=== PATIENT | male | born 1945 | race Caucasian/White ===

== ENCOUNTER → 2016-12-17 | Day surgery (SDC) | payer MEDICARE ==
[~2016-12-17] MED LIST: BUPIVACAINE/EPINEPHRINE 0.25% PF 30 ML VIAL ONE; BUPIVACAINE/EPINEPHRINE 0.5% PF 30 ML VIAL ONE; KETOROLAC TROMETHAMINE 30 MG/ML (IVP) VIAL IV PUSH ONE; LACTATED RINGER'S 1,000 ML BAG IV ONE; LACTATED RINGER'S 1000 ML INJ 1,000 ML ONE; LISI-363 PO; LORTA5 PO; MIDAZOLAM HCL 2 MG/2 ML VIAL ONE; OMEP20TA39 PO; ONDANSETRON HCL 4 MG/2 ML VIAL IV PUSH ONE; PROPOFOL 200 MG/20 ML AMP IV ONE; RIVA10 PO; TRIAMCINOLONE ACETONIDE 40 MG/ML VIAL ONE; Z.0.COMMODE-3:1; Z.0.CPM; Z.0.WALKERFRONT; ceFAZolin INJ 1,000 MG VIAL ONE
--- NOTE | 2016-12-19 22:25 | MP ---
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 FINDINGS Tricompartmental scar tissue. SURGEON Nicole Cedeño MD. RISK ASSESSOR LUIGI Jarvis. RISK ASSESSOR LUIGI Dey The surgical procedure was assisted by my Advanced Registered Nurse Practitioner. My AUDIOLOGY DOCTOR presence was necessary throughout this case for the manipulation and positioning of the surgical extremity. My AUDIOLOGY DOCTOR was assisting me throughout the duration of this procedure. The skill set of an Advance Registered Nurse Practitioner was medically necessary to complete this procedure. During the surgical case, the electrical electronics technician was working at the back table and the Advance Registered Nurse Practitioner was directly assisting me. PROCEDURE Left knee arthroscopy with three compartment synovectomy and resection of scar tissue. ESTIMATED BLOOD LOSS Minimal ANESTHESIA General PROCEDURE IN DETAIL The patient was brought back to the operative theater. After general anesthesia was administered, the left lower extremity was prepped and draped in usual sterile fashion. The patient received intravenous Ancef. We started with the standard inferolateral portal. We got out about 5 mL of clear yellow synovial fluid which was viscus in nature and showed no signs of infection. We then established an inferomedial portal under spinal needle visualization. We identified that there was significant scar tissue in the front of the knee. We started with resecting this. We used a combination of several different types of oscillating john and then we used underwater [employer]thro[employer] wand which helped very well. As we progressed, we noticed that there was scar tissue that was covering both the medial and the lateral femoral condyle and also within the notch. We resected all of this tissue which now gave excellent exposure to the prosthesis. There was an arc of scar tissue that was just infrapatellar which was also resected. We then got excellent visualization of the patella component and then we found out there was some scar tissue in nodule form that was of the proximal patella. We resected all of the aforementioned scar tissue out of the patellofemoral joint and then off of the medial and lateral femoral condyle. Evaluation of the prosthesis, specifically the femoral component and the polyethylene of the tibia and the patella, showed that all these were intact with no signs of any mechanical failure. There was no significant wear patterns that were noted. No signs of loosening. No loose bodies noted in the joint. Once we completed the synovectomy and removal of scar tissue full three compartments, we then put the knee through range of motion. We found that there was no subluxing soft tissue within the joint into the tibial femoral joint or the patellofemoral joint. Note that we did make an accessory portal through the VMO to resect the scar tissue that was in the suprapatellar region. The arthroscopic portals were closed with 2-0 Vicryl followed by 3-0 nylon with interarticular injection given of 0.25% Marcaine. MD MARCELLA Adam/ /1:53 PM /10:14 PM
== END | disposition home or self-care (01) ==
LOC: ESDC 11:41
PROVIDERS: ATTEND Orthopaedic Surgery
DX: M23.8X2 Other internal derangements of left knee (principal); Z96.652 Presence of left artificial knee joint
CPT/HCPCS: 01400; 29876; J0690; J1885; J2250; J2405; J3010; J3301; J7120